=== PATIENT | male | born 1950 | race Caucasian/White ===

== ENCOUNTER → 2017-02-02 | Outpatient (CLI) | payer OTHER ==
[~2017-02-02] MED LIST: ARICEPT 5 MG TAB5 MG PO; ASPIR 8181 MG PO; ATORVASTATIN CA40 MG PO; CARBIDOPA-LEVO1 EA11 PO; CARBIDOPA-LEVO1 EAC9 PO; CELEBREX 200 M200 M1 PO; CLONAZEPAM 1 MG1 M1 PO; COREG6.25 MG PO; FIBER500 MG PO; FISH OIL 1,001000 M2 PO; HYDROCODONE-AP1 EAC6 PO; MOBIC7.5 MG PO; NEURONTIN 300300 M1 PO; NORVASC5 MG PO; PRILOSEC20 MG PO; PRINIVIL20 MG PO; TRAMADOL 50 MG50 MG PO; XARELTO10 MG PO; ZANTAC 150MG T150 MG PO; ZOLOFT50 MG PO; [UNRECOGNIZED DRUG - OTHER] PO
== END ==
LOC: RAD 08:23
DX: Z96.651 Presence of right artificial knee joint (principal)